=== PATIENT | female | born 1985 | race Caucasian/White ===

== ENCOUNTER 2017-01-09 11:42 | Emergency (ER) | payer OTHER ==
[~2017-01-09] VITALS: Ht 162.6 cm; Wt 70.0 kg
[2017-01-09 11:45] VITALS: BP 118/85; PULSE 75; RESP 16; TEMP 98; O2SAT 99
[2017-01-09] MEDS ORDERED: SODIUM CHLOR 0.9% 1000 ML INJ 1,000 ML IV ONE (12:00)
[2017-01-09] MEDS ORDERED: KETOROLAC TROMETHAMINE 30 MG/ML (IVP) VIAL IV PUSH ONE (12:00)
[2017-01-09] MEDS ORDERED: CYCLOBENZAPRINE HCL 10 MG TAB PO ONE (12:00)
[2017-01-09] MEDS ORDERED: LORA-373 PO (12:01)
[2017-01-09] MEDS ORDERED: ESCI10TA PO (12:01)
[2017-01-09] MEDS ORDERED: BIRTH CONTROL PILLS PO (12:01)
[2017-01-09] MEDS ORDERED: BUTA1CAP5 PO (12:01)
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
[2017-01-09] MEDS ORDERED: CYCL1TAB29 PO (14:59)
[2017-01-09] MEDS ORDERED: IBUP-232 PO (14:59)
[2017-01-09] MEDS ORDERED: HYDR-3533 PO (14:59)
[2017-01-09] MEDS ORDERED: ACETAMINOPHEN/HYDROcodone 325 MG/5 MG TAB PO ONE (15:00)
[2017-01-09 15:15] VITALS: BP 114/75
== END 2017-01-09 15:23 | disposition home or self-care (01) ==
LOC: NEPD 11:42
DX: S16.1XXA Strain of muscle, fascia and tendon at neck level, initial encounter (principal); M79.1 Myalgia; V89.2XXA Person injured in unspecified motor-vehicle accident, traffic, initial encounter
CPT/HCPCS: 72125; 96361; 96374; 99285; J1885; J7030